=== PATIENT | female | born 1985 | race Two or more races ===

== ENCOUNTER 2018-01-20 20:37 | Emergency (ER) | payer OTHER ==
[2018-01-20 20:51] VITALS: BP 117/78
[2018-01-20] MEDS ORDERED: Amoxicillin/Clavulanate TAB* 875 MG PO ONE (21:16)
--- NOTE | 2018-01-20 21:16 | UC ---
Eye Complaint HPI - HPI Summary HPI Summary: pt is c/o pain and swelling to her L upper eye lid since yesterday. it is worsening. she denies any itching and states there is not sty. denies URI, visual changes and d/c. also denies fever. denies pain with movement of her eyes and no hx MRSA. - History of Current Complaint Hx Obtained From: Patient Hx Last Menstrual Period: 01/11/18 Onset/Duration: Gradual Onset Timing: Constant Pain Intensity: 8 Location of Injury: Eye Lid (upper) Aggravating Factor(s): Nothing Alleviating Factor(s): Nothing Associated Signs And Symptoms: Positive: Swelling. Negative: Photophobia, Drainage (Clear), Drainage (Purulent), Vision Impairment Bilateral, Fever - Risk Factors Penetrating Injury Risk Factor: Negative Globe Rupture Risk Factors: Negative Acute Glaucoma Risk Factors: Negative <Kailey Alanis - Last Filed: 01/20/18 21:10> <Marybel Hunt - Last Filed: 01/20/18 21:48> - History of Current Complaint Chief Complaint: UCEye Stated Complaint: LEFT EYE SWELLING Time Seen by Provider: 01/20/18 21:01 - Allergies/Home Medications Allergies/Adverse Reactions: Allergies Allergy/AdvReac Type Severity Reaction Status Date / Time doxycycline Allergy Rash Verified 01/20/18 20:48 Home Medications: Home Medications Vit37/Iron/Folic Acid [Prenata Chewable Tablet] 1 tab PO DAILY [History Confirmed 01/20/18] PMH/Surg Hx/FS Hx/Imm Hx Previously Healthy: Yes - Surgical History Surgical History: Yes Surgery Procedure, Year, and Place: APPY, D&C - Family History Known Family History: Positive: Cardiac Disease, Hypertension - Social History Lives: With Family Alcohol Use: None Substance Use Type: None Smoking Status (MU): Never Smoked Tobacco - Immunization History Vaccination Up to Date: Yes <Kailey Alanis - Last Filed: 01/20/18 21:10> Review of Systems Constitutional: Negative Skin: Negative Eyes: Other - pain/swelling L upper lid ENT: Negative Respiratory: Negative Cardiovascular: Negative Gastrointestinal: Negative Genitourinary: Negative Motor: Negative Neurovascular: Negative Musculoskeletal: Negative Neurological: Negative Psychological: Negative Is Patient Immunocompromised?: No All Other Systems Reviewed And Are Negative: Yes <Kailey Alanis - Last Filed: 01/20/18 21:10> Physical Exam Triage Information Reviewed: Yes Appearance: Well-Appearing Vital Signs: Initial Vital Signs Temp 98 F 01/20/18 20:46 Pulse 80 01/20/18 20:46 Resp 16 01/20/18 20:46 BP 117/78 01/20/18 20:46 Pulse Ox 98 01/20/18 20:46 Vital Signs Reviewed: Yes Eyes: Positive: Conjunctiva Clear, Other: - PERRL, EOMI and is painless, Globe not buldging. L upper lid is mildly swollen, pink, warm to touch and tender. a/ c is clear. No auricular adenopathy. ENT: Positive: Pharynx normal, TMs normal. Negative: Nasal congestion, Nasal drainage Neck: Positive: Supple, Nontender, No Lymphadenopathy Respiratory: Positive: Lungs clear, Normal breath sounds Cardiovascular: Positive: RRR, No Murmur Abdomen Description: Positive: Nontender, No Organomegaly, Soft Bowel Sounds: Positive: Present Musculoskeletal: Positive: ROM Intact Neurological: Positive: Alert Psychological: Positive: Age Appropriate Behavior Skin Exam: Normal <Kailey Alanis - Last Filed: 01/20/18 21:10> Vital Signs: Initial Vital Signs Temp 98 F 01/20/18 20:46 Pulse 80 01/20/18 20:46 Resp 16 01/20/18 20:46 BP 117/78 01/20/18 20:46 Pulse Ox 98 01/20/18 20:46 <Marybel Hunt - Last Filed: 01/20/18 21:48> Eye Complaint Course/Dx - Course Course Of Treatment: No orbital cellulitis. No sty or chalazion and globe is unremarkable. exam supports a superficial skin infection to L upper lid. no hx mrsa thus will tx with augmentin and need for close f/u and recheck stressed to pt. pt also advised of s/s's orbital cellulitis and need to go to ER for any worseniong. - Differential Dx/Diagnosis Provider Diagnoses: Superficial skin infection L upper eye lid <Kailey Alanis - Last Filed: 01/20/18 21:10> Discharge - Sign-Out/Discharge Documenting (check all that apply): Discharge - Billing Disposition and Condition Condition: STABLE Disposition: HOME <Kailey Alanis - Last Filed: 01/20/18 21:10> - Billing Disposition and Condition Condition: STABLE Disposition: HOME <Marybel Hunt - Last Filed: 01/20/18 21:48> - Discharge Plan Condition: Stable Disposition: HOME Prescriptions: Amoxicillin/Clavulanate TAB* [Augmentin TAB 875*] 875 mg PO BID #20 tab Patient Education Materials: Periorbital Cellulitis in Adults (ED) Referrals: Андрей Carrasco MD [Primary Care Provider] - 2 Days Attestation Statement Provider Attestation: I was available for consult. This patient was seen by the LILIANA. The patient was not presented to, seen by, or examined by me. -Maurice <Marybel Hunt - Last Filed: 01/20/18 21:48>
== END 2018-01-20 21:24 | disposition home or self-care (01) ==
LOC: UCCORT 20:37
DX: H01.9 Unspecified inflammation of eyelid (principal); Z88.3 Allergy status to other anti-infective agents
CPT/HCPCS: 99212; A9270-GY; G0463

== ENCOUNTER 2018-04-17 17:44 | Emergency (ER) | payer BC, OTHER ==
[2018-04-17 18:05] VITALS: BP 116/73
--- NOTE | 2018-04-17 18:12 | UC ---
Skin Complaint HPI - HPI Summary HPI Summary: C/O elbow rash over the last 3-4 days. Family history for eczema in her daughter. - History of Current Complaint Chief Complaint: UCRash Stated Complaint: RASH Hx Obtained From: Patient Hx Last Menstrual Period: 03/29/18 ?: No Onset/Duration: Sudden Onset, Lasting Days - 4 Current Severity: Mild Pain Intensity: 0 Location: Discrete - Elbow creases, Hand (Right), Hand (Left), Foot (Right), Foot (Left) Character: Pruritus, Redness Aggravating Factor(s): Touch Alleviating Factor(s): Cold Associated Signs & Symptoms: Positive: Rash - Allergy/Home Medications Allergies/Adverse Reactions: Allergies Allergy/AdvReac Type Severity Reaction Status Date / Time doxycycline Allergy Rash Verified 04/17/18 18:00 Home Medications: Home Medications Ammonium Lactate/Emu Oil [Emu-Lac Hydrating Cream] 1 applic TOPICAL BID PRN 04/28 [History Confirmed 04/17/18] Ibuprofen TAB* [Advil TAB*] 800 mg PO Q8H PRN 04/17/18 [History Confirmed ] diPHENhydraMINE PO* [Benadryl PO 25 MG TAB*] 25 - 50 mg PO Q6H PRN 04/17/18 [ History Confirmed 04/17/18] Review of Systems Skin: Rash Is Patient Immunocompromised?: No All Other Systems Reviewed And Are Negative: Yes PMH/Surg Hx/FS Hx/Imm Hx Previously Healthy: Yes - Surgical History Surgical History: Yes Surgery Procedure, Year, and Place: APPY, D&C - Family History Known Family History: Positive: Cardiac Disease, Hypertension Negative: Diabetes - Social History 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 Lives: With Family Alcohol Use: None Substance Use Type: None Smoking Status (MU): Never Smoked Tobacco - Immunization History Vaccination Up to Date: Yes Physical Exam Triage Information Reviewed: Yes Appearance: Well-Appearing, No Pain Distress, Well-Nourished Vital Signs: Initial Vital Signs Temp 98.6 F 04/17/18 17:56 Pulse 60 04/17/18 17:56 Resp 16 04/17/18 17:56 BP 116/73 04/17/18 17:56 Pulse Ox 100 04/17/18 17:56 Vital Signs Reviewed: Yes Neck exam: Normal Respiratory Exam: Normal Cardiovascular Exam: Normal Musculoskeletal Exam: Normal Neurological Exam: Normal Psychological Exam: Normal Skin: Positive: rashes - Papular rash on the flexor creases of the elbows. Scaling erythematous rash on the soles of the feet. Course/Dx - Differential Diagnoses - Skin Complaint Differential Diagnoses: Cellulitis, Contact Dermatitis, Eczema, Impetigo - Diagnoses Provider Diagnoses: Atopic dermatitis. Eczema Discharge - Sign-Out/Discharge Documenting (check all that apply): Discharge/Admit/Transfer - Discharge Plan Condition: Stable Disposition: HOME Prescriptions: Betamethasone Dipropionate 1 applic TOPICAL BID #50 gm Patient Education Materials: Eczema (ED), Betamethasone Dipropionate, Augmented (On the skin) Referrals: Андрей Carrasco MD [Primary Care Provider] - Additional Instructions: Dove unscented soap. Dye free unscented laundry detergent. No fabric softeners or dryer sheets. - Billing Disposition and Condition Condition: STABLE Disposition: Home
== END 2018-04-17 18:30 | disposition home or self-care (01) ==
LOC: UCCORT 17:44
DX: L20.9 Atopic dermatitis, unspecified (principal); L30.9 Dermatitis, unspecified; Z88.1 Allergy status to other antibiotic agents
CPT/HCPCS: 99212; G0463